=== PATIENT | female | born 1955 | race American Indian/Alaskan Native ===

== ENCOUNTER 2017-10-06 09:09 | Day surgery (SDC) | payer BC ==
[2017-10-06] MEDS ORDERED: NACL 0.9% 1000 ML 1,000 ML ONE (10:33)
[2017-10-06] MEDS ORDERED: NACL 0.9% 1000 ML 1,000 ML IV SCH (11:00)
[2017-10-06] MEDS ORDERED: WATER FOR IRRIG STERILE IR ONE (11:51)
[2017-10-06] MEDS ORDERED: HURRICAINE ONE 20% TOPICAL SPRAY MM (12:45)
[2017-10-06] MEDS ORDERED: DIPRIVAN 10 MG/ML IV ONE (12:51)
--- NOTE | 2017-10-06 12:52 | Anesthesia Consultation ---
Anesthesia Consult and Med Hx Date of service: 10/06/17 - Airway Anesthetic Teeth Evaluation: Good ROM Head & Neck: Adequate Mental/Hyoid Distance: Adequate Mallampati Class: Class II Intubation Access Assessment: Probably Good - Pre-Operative Health Status ASA Pre-Surgery Classification: ASA3 Proposed Anesthetic Plan: MAC - Pulmonary Hx Respiratory Symptoms: Yes (PE in 2013) - Cardiovascular System Hx Hypertension: Yes Hx Peripheral Vascular Disease: Yes (DVT with PE) - Gastrointestinal Hx Gastroesophageal Reflux Disease: Yes - Endocrine Hx Hypothyroidism: Yes - Other Systems Hx Obesity: Yes
--- NOTE | 2017-10-06 12:52 | Anesthesia Day of Surgery ---
Anesthesia Day of Surgery - Day of Surgery Patient Examined: Yes Patient H&P Reviewed: Yes Patient is NPO: Yes
[2017-10-06] MEDS ORDERED: XYLOCAINE MPF 2% ONE (13:00)
--- NOTE | 2017-10-06 13:07 | Operative Report ---
Operative Report Operative Report: OPERATIVE REPORT - EGD DATE 10/06/17 SURGERY: Upper endoscopy. SURGEON: Dr. Sen PACKAGE LIFT OPERATOR: Nyla Mohan PRE OP DX: GERD, hx of SLeeve gastrectomy POST OP DX: Same as above TYPE OF ANESTHESIA: MAC. ESTIMATED BLOOD LOSS: None. COMPLICATIONS: None. SPECIMENS REMOVED: None. FINDINGS: 1. Small hiatal hernia. 2. Otherwise, normal esophagus and first portion of duodenum. 3. Retained food in the stomach 4. Angle at incisura INDICATIONS:INDICATION FOR PROCEDURE: Patient is a 62-year-old female with a hx of a Laparoscopic sleeve gastrectomy with hiatal hernia repair in the past with Dr. Fajardo. She has been having severe acid reflux despite the use of a PPI. She is here today to evaluate her sleeve. PROCEDURE DETAILS: After consent was reviewed, patient was taken back to the operating room where patient was placed in the left lateral decubitus position and a bite block was placed in the mouth. After a time-out was called, MAC anesthesia was initiated. I then passed the endoscope into her oropharynx, into her esophagus, visualized the entire esophagus, which was all within normal limits. I then visualized the sleeve. There was retained food in the stomach. I was able to visualize the entire sleeve. A sharp angle at the incisura was noted. Tnd the first portion of the duodenum was visualized no abnormalities I could clearly visualize. I then retroflexed the scope in the sleeve due to the size of the sleeve and visualized the hiatus and I could see a small hiatal hernia. I then desufflated the stomach and removed the endoscope. Patient tolerated procedure well and was transferred to recovery room in good and stable condition. Due to the retained food there is a concern for possible delay of gastric emptying. She will be started on reglan. A gastric emptying study could benefit her.
--- NOTE | 2017-10-06 13:07 | Discharge Summary ---
Providers - Providers Attending physician: SANITAGO ISABEL Primary care physician: ARCENIO CHERY Hospitalization Procedures: egd Hospital course: Pt presented for an EGD. She tolerated the procedure well. She was discharged home the same day Disposition: TO HOME OR SELFCARE Core Measure Documentation - Palliative Care Palliative Care/ Comfort Measures: Not Applicable - Core Measures Any of the following diagnoses?: none Exam - Physical Exam Narrative exam: no change from prior - Constitutional Vitals: Temp Pulse Resp BP Pulse Ox 97.7 F 45 L 20 135/88 100 10/06/17 11:35 10/06/17 11:35 10/06/17 11:35 10/06/17 11:35 10/06/17 11:35 Plan Follow up with: ARCENIO CHERY MD [Primary Care Provider] - 7 Days
[2017-10-06 13:34] VITALS: BP 103/57
[2017-10-06] MEDS ORDERED: HURRICAINE ONE 20% TOPICAL SPRAY MM NR (17:00)
== END 2017-10-06 09:10 | disposition home or self-care (01) ==
LOC: GIO 09:09
PROVIDERS: ATTEND Specialist
DX: K44.9 Diaphragmatic hernia without obstruction or gangrene (principal); K31.89 Other diseases of stomach and duodenum; K21.9 Gastro-esophageal reflux disease without esophagitis; I73.9 Peripheral vascular disease, unspecified; I10 Essential (primary) hypertension; E03.9 Hypothyroidism, unspecified; E66.01 Morbid (severe) obesity due to excess calories; Z68.36 Body mass index [BMI] 36.0-36.9, adult; Z86.718 Personal history of other venous thrombosis and embolism; Z79.01 Long term (current) use of anticoagulants; Z98.84 Bariatric surgery status; Z88.5 Allergy status to narcotic agent; Z86.711 Personal history of pulmonary embolism
CPT/HCPCS: 43235; J2704; J7030

== ENCOUNTER 2018-07-20 08:03 | Inpatient (IN) | payer BC ==
--- NOTE | 2018-07-16 13:04 | Anesthesia Consultation ---
Anesthesia Consult and Med Hx Date of service: 07/16/18 - Airway Anesthetic Teeth Evaluation: Good (some missing teeth in the back) ROM Head & Neck: Adequate Mental/Hyoid Distance: Adequate Mallampati Class: Class II Intubation Access Assessment: Probably Good - Pre-Operative Health Status ASA Pre-Surgery Classification: ASA3 Proposed Anesthetic Plan: General - Pulmonary Hx Smoking: Yes Hx Respiratory Symptoms: Yes (PE in 2013) Hx Sleep Apnea: Yes (uses CPAP) - Cardiovascular System Hx Hypertension: Yes Hx Peripheral Vascular Disease: Yes (DVT with PE) - Central Nervous System Hx Back Pain: No (right TKR 12', revision 05/08) Hx Psychiatric Problems: No - Gastrointestinal Hx Gastroesophageal Reflux Disease: Yes - Endocrine Hx Hypothyroidism: Yes (DUE TO THYROIDECTOMY) - Other Systems Hx Alcohol Use: Yes (OCCA) Hx Substance Use: No Hx Cancer: No Hx Obesity: Yes (s/o gastric sleeve)
[~2018-07-20 08:03] MED LIST: LACTATED RINGERS 1,000 ML IV SCH; PEPCID IV NR
[2018-07-20] MEDS ORDERED: ANCEF/STERILE WATER 2 GM/20 ML IV NR (09:19)
--- NOTE | 2018-07-20 09:20 | Anesthesia Day of Surgery ---
Anesthesia Day of Surgery - Day of Surgery Patient Examined: Yes Patient H&P Reviewed: Yes Patient is NPO: Yes Beta Blockers: No Cardiac Clearance: No Pulmonary Clearance: No
[2018-07-20] MEDS ORDERED: NARCAN 0.4 MG/1 ML IV PRN (09:21)
[2018-07-20] MEDS ORDERED: SUBLIMAZE IV PRN (09:21)
[2018-07-20] MEDS ORDERED: ZOFRAN IV PRN ×3 (09:21→14:20)
[2018-07-20] MEDS ORDERED: FLAGYL 500 MG/100 ML 500 MG/100 ML BAG IV NR ×2 (10:00→11:00)
[2018-07-20] MEDS ORDERED: TYLENOL PO NR (10:00)
[2018-07-20] MEDS ORDERED: NEURONTIN PO NR (10:00)
[2018-07-20] MEDS ORDERED: VERSED IV NR (10:00)
[2018-07-20] MEDS ORDERED: XYLOCAINE 1% 20 mL ONE (10:53)
[2018-07-20] MEDS ORDERED: MARCAINE-EPI 0.5%-1:200,000 INFILTRATI ONE ×2 (10:54→11:53)
[2018-07-20] MEDS ORDERED: ANCEF/STERILE WATER 2 GM/20 ML 2 GM/20 ML SYRINGE IV NR (11:00)
[2018-07-20] MEDS ORDERED: TRANSDERM-SCOP TD SCH (11:00)
[2018-07-20] MEDS ORDERED: LOVENOX SUB-Q NR (11:00)
[2018-07-20] MEDS ORDERED: DIPRIVAN 10 MG/ML IV ONE (11:11)
[2018-07-20] MEDS ORDERED: DILAUDID ONE (11:11)
[2018-07-20] MEDS ORDERED: ZEMURON IV ONE ×2 (11:11→13:09)
[2018-07-20] MEDS ORDERED: XYLOCAINE MPF 2% ONE (11:11)
[2018-07-20] MEDS ORDERED: MYLICON PO PRN (11:41)
[2018-07-20] MEDS ORDERED: APRESOLINE IV PRN (11:41)
[2018-07-20] MEDS ORDERED: NORCO PO PRN (11:41)
[2018-07-20] MEDS ORDERED: NEO SYNEPHRINE/NS Syringe(OR USE) IV ONE (11:49)
[2018-07-20] MEDS ORDERED: XYLOCAINE 1% 20 mL INFILTRATI ONE (11:54)
[2018-07-20] MEDS ORDERED: NACL 0.9% IR ONE ×2 (11:54→12:00)
[2018-07-20] MEDS ORDERED: ROBINUL ONE (13:33)
[2018-07-20] MEDS ORDERED: BLOXIVERZ ONE (13:33)
[2018-07-20] MEDS ORDERED: ZOFRAN ONE (13:41)
[2018-07-20] MEDS: DILAUDID IV PRN ×2 (14:02→19:40)
[2018-07-20] MEDS: LACTATED RINGERS 1,000 ML IV SCH (22:50)
[2018-07-21] MEDS: REGLAN IV PRN ×2 (04:33→11:06)
[2018-07-21] MEDS: DILAUDID IV PRN ×2 (04:34→11:05)
--- NOTE | 2018-07-21 04:41 | Discharge Summary ---
Providers - Providers Date of Admission: 07/20/18 08:03 Date of discharge: 07/21/18 Attending physician: SANTIAGO SEN Primary care physician: HANH ORELLANA MD Hospitalization Reason for admission: postop care Condition: Good Procedures: 07/20/18: Laparoscopic conversion sleeve to RYGB, cholecystectomy Hospital course: 62F admitted after her operation for routine postop care. She was managed on the general surgical floor. She had mild nausea in the am, but tolerated a CLD, pain under control. She was dc home in stable condition. Disposition: DC-01 TO HOME OR SELFCARE Core Measure Documentation - Palliative Care Palliative Care/ Comfort Measures: Not Applicable - Core Measures Any of the following diagnoses?: none - VTE Discharge Requirements Deep Vein Thrombosis/Pulmonary Embolism Present on Admission: No - Acute ND Discharge Requirements Aspirin at discharge: No Reason for no aspirin on DC: Surgical contraindication - Heart Failure Discharge Requirements MANUEL/ARB for LVSD if EF <40%: Not Applicable - Stroke Discharge Requirements Statin for LDL = or >70 mg/dl on DC: Not Applicable Exam - Physical Exam Narrative exam: GEN: AAO, appears tired HEART: RRR LUNGS: CTAB ABD: Soft, ND, NT, bandages cdi EXT: NO LE edema - Constitutional Vitals: Temp Pulse Resp BP Pulse Ox 98.0 F 62 17 147/69 99 07/21/18 01:47 07/21/18 01:47 07/21/18 04:34 07/21/18 01:47 07/21/18 01:47 Plan Diet: clear liquids Wound: keep clean and dry Special Instructions: no heavy lifting Additional Instructions: f/u Dr Sen as scheduled Follow up with: PRIMARY CAREMD [Primary Care Provider] - 7 Days
[2018-07-21] MEDS: LACTATED RINGERS 1,000 ML IV SCH (04:45)
[2018-07-21 05:55] LABS: Alanine Aminotransferase 88 units/L (7-56); Albumin 3.4 g/dL (3.9-5); BUN/Creatinine Ratio 11; Blood Urea Nitrogen 8 mg/dL (7-17); Calcium 8.4 mg/dL (8.4-10.2); Hemolysis Index 1
--- NOTE | 2018-07-21 07:39 | Post Anesthesia Evaluation ---
- Post Anesthesia Evaluation Patient Participated: Yes Airway Patent: Yes Stable Respiratory Function: Yes Nausea/Vomiting: No Temp > 96.8F: Yes Pain Manageable: Yes Adequeate Hydration: Yes Anesthesia Complications: No
[2018-07-21 09:22] LABS: Hematocrit 36.7 % (30.3-42.9); Hemoglobin 11.5 gm/dl (10.1-14.3); Mean Corpuscular HGB Conc 31 % (30-34); Mean Corpuscular Volume 96 fl (79-97); Platelet Count 216 K/mm3 (140-440); Red Blood Count 3.85 M/mm3 (3.65-5.03); Red Cell Distribution Width 16.3 % (13.2-15.2)
[2018-07-21] MEDS ORDERED: PROTONIX PO SCH (10:00)
[2018-07-21 10:01] LABS: Basophils % (Manual) 0 % (0.0-1.8); Total Cells Counted 100
[2018-07-21 10:02] LABS: Platelet Estimate Consistent w Auto; RBC Morphology Normal
[2018-07-21] MEDS: LOVENOX SUB-Q SCH ×2 (11:07→11:27)
[2018-07-21 12:34] VITALS: BP 125/76
== END 2018-07-21 12:30 | disposition home or self-care (01) | DRG 327 ==
LOC: 3A 08:03 → 3B-SURG 14:03
PROVIDERS: ADMIT Specialist; ATTEND Specialist
PROC: 0DB60Z3 Excision of Stomach, Open Approach, Vertical (ICD-10-PCS; principal; 2018-07-20)
PROC: 0FT40ZZ Resection of Gallbladder, Open Approach (ICD-10-PCS; 2018-07-20)
PROC: 0BQT0ZZ Repair Diaphragm, Open Approach (ICD-10-PCS; 2018-07-20)
PROC: 0DJ64ZZ Inspection of Stomach, Percutaneous Endoscopic Approach (ICD-10-PCS; 2018-07-20)
DX: K44.9 Diaphragmatic hernia without obstruction or gangrene (principal); K57.32 Diverticulitis of large intestine without perforation or abscess without bleeding; F17.200 Nicotine dependence, unspecified, uncomplicated; I10 Essential (primary) hypertension; G47.30 Sleep apnea, unspecified; I73.9 Peripheral vascular disease, unspecified; K21.9 Gastro-esophageal reflux disease without esophagitis; E03.9 Hypothyroidism, unspecified; E66.01 Morbid (severe) obesity due to excess calories; Z86.711 Personal history of pulmonary embolism; Z86.718 Personal history of other venous thrombosis and embolism; Z72.89 Other problems related to lifestyle; Z98.84 Bariatric surgery status; Z68.38 Body mass index [BMI] 38.0-38.9, adult; Z88.5 Allergy status to narcotic agent
CPT/HCPCS: 36415; 80053; 82962; 85007; 85025; 88304; 94760; G0378; A4217; J0690; J1170; J1650; J2250; J2370; J2405; J2704; J2710; J2765; J7120